=== PATIENT | female | born 1960 | race Caucasian/White ===

== ENCOUNTER 2019-11-19 08:42 | Outpatient (CLI) | payer BC, SELFPAY ==
--- NOTE | 2019-11-19 08:46 | ECG_ITS ---
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
== END 2019-11-19 08:43 | disposition home or self-care (01) ==
PROVIDERS: Visit Provider Obstetrics & Gynecology
DX: Z01.810 Encounter for preprocedural cardiovascular examination (principal); E78.2 Mixed hyperlipidemia
CPT/HCPCS: 93005

== ENCOUNTER 2019-11-26 00:51 | Day surgery (SDC) | payer BC, SELFPAY ==
[2019-11-13 14:27] VITALS: BMI 39.1
--- NOTE | 2019-11-25 22:56 | PM.IMHP ---
H&P: HPI History of Present Illness Chief complaint: Post Menopausal Bleeding Narrative: 58-year-old 1 para 1001 who had not had any vaginal bleeding for a year or so. She then had a small episode in March. Daily vaginal bleeding started in May. She says it is not heavy, but is always present. She has no cramping or pain. Ultrasound exam on 09/01/19 demonstrated an endometrial stripe measuring 6-7 mm. The right ovary was normal in appearance and the left was not visualized. 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 She has no history of abnormal pap or of STI. Meds Home Medications and Allergies Home Medications Medication Instructions Recorded Confirmed Type atorvastatin 10 mg tablet 10 mg PO QPM 08/22/19 11/13/19 History levothyroxine 137 mcg tablet 137 mcg PO DAILY #30 tablet 08/27/19 11/13/19 Rx ascorbic acid-vitamin E-biotin 1 tablet PO DAILY 11/13/19 11/13/19 History [Hair, Skin, Nails with Biotin] flaxseed oil 1,000 mg PO DAILY 11/13/19 11/13/19 History Allergies Allergy/AdvReac Type Severity Reaction Status Date / Time No Known Allergies Allergy Verified 11/13/19 14:28 Exam Const: General: comfortable and no acute distress Neck: Thyroid: thyroid normal Resp: Effort & Inspection: normal respiratory effort Auscultation: clear to auscultation bilaterally Cardio: Rate: regular rate Rhythm: regular rhythm GI: Other: Soft, nontender, nondistended. No hepatosplenomegaly. : Other: External genitalia: normal female hair distribution, without lesion. Urethral meatus: no lesion, non prolapsed. Bladder: no mass, nontender Vagina: well-estrogenized, without lesion. No cystocele or rectocele. Dark blood is noted. Cervix: no lesion or discharge. Uterus: small, anteverted, freely mobile, nontender Adnexa: no mass or tenderness. Anus/perineum: no lesions, nontender Skin: General skin exam: normal color and no rashes or lesions noted Neuro: Speech: normal speech Extrem: Other: Nontender, no edema Psych: Mental Status: mental status grossly normal Affect: normal affect Assessment and Plan Assessment and plan (1) Post-menopausal bleeding: Code(s): N95.0 - Postmenopausal bleeding Status: Acute Assessment and Plan: We have reviewed options including endometrial sampling in the office versus hysteroscopy with D&C in the operating room. After a discussion regarding risks and benefits, she prefers the latter. She understands risks of surgery to include risks of anesthesia, risks of pain, infection, bleeding, blood products, thromboembolic phenomena and damage to adjacent structures such as bowel, bladder, ureters, blood vessels and nerves. She understands all these risks and elects to proceed with surgery. (2) Abnormal pelvic ultrasound: Code(s): R93.89 - Abnormal findings on diagnostic imaging of other specified body structures Status: Acute
[2019-11-26] MEDS: LACTATED RINGERS 1,000 ML 30 ML IV CONT (10:20)
[2019-11-26 10:30] VITALS: BP 115/76; PULSE 76; RESP 18; TEMP 36.9; O2SAT 97
--- NOTE | 2019-11-26 11:49 | WPDANESEPPF ---
Anes - Initial Pre Proc Eval Procedure: Operation Date: 11/26/19 12:00 Proposed Procedures p Hysteroscopy, Dilation and Curettage - Abdon Weeks MD Date/Time: 11/26/19 11:49 Surgeon: Abdon Weeks MD Pre Op Diagnosis: Post Menopausal Bleeding Patient Data Age: 58 Gender: F Height: 5 ft 7 in Weight: 117 kg Allergies Allergy/AdvReac Type Severity Reaction Status Date / Time No Known Allergies Allergy Verified 11/26/19 10:14 Home Medications Medication Instructions Recorded Confirmed Type atorvastatin 10 mg tablet 10 mg PO QPM 08/22/19 11/26/19 History levothyroxine 137 mcg tablet 137 mcg PO DAILY #30 tablet 08/27/19 11/26/19 Rx ascorbic acid-vitamin E-biotin 1 tablet PO DAILY 11/13/19 11/26/19 History [Hair, Skin, Nails with Biotin] flaxseed oil 1,000 mg PO DAILY 11/13/19 11/26/19 History Patient hx anesthesia problems: none Family hx anesthesia problems: none PMFSH Past Medical History Medical History Endocrine disorder H/O radioactive iodine thyroid ablation (~07/08/09) Hepatitis C antibody test negative Family History Family History Grandparent Diabetes mellitus Family history of malignant neoplasm of breast Father Hypertension Cerebrovascular accident Sibling Family history of elevated blood lipids Social History Social History Smoking status: Former smoker Smoking end date: 10/08/14 Alcohol intake: current Anes - Eval Final PreProcedure Day of Procedure 11/26/19 11:49 Patient weight: morbidly obese Heart: regular rate and rhythm Lungs: clear to auscultation Airway: Mallampati scale class III Neurological: alert and oriented Last oral intake: >/= 8 hours ASA classification: III Emergent: no Anesthetic plan: proceed Anesthesia type and monitoring: general GIVS and standard monitoring Informed Consent: The patient's anesthetic plan and its attendant risks and benefits were discussed with the patient/family/POA. Questions were solicited and answers provided to the satisfaction of the patient/family/POA.
--- NOTE | 2019-11-26 12:16 | WPDHPUPDATE1 ---
History and Physical Update Update Date/Time: 11/26/19 12:16 History and Physical has been reviewed, including an updated exam of the patient. There are NO changes in the patient's condition. Risks, benefits, and alternatives have been discussed and questions answered. Patient agrees to proceed with procedure.
[2019-11-26] MEDS: KETOROLAC 30 MG/ML VIAL (*BKC) IV PUSH (12:45)
--- NOTE | 2019-11-26 12:51 | P.OP_ITS ---
Procedure Note - Detailed Date of procedure: 11/26/19 Pre-op diagnosis: Post Menopausal Bleeding Post-op diagnosis: same Procedure performed: Hysteroscopy D&C Endometrial polypectomy Description of procedure: The patient was taken to the operating room where she was prepared and draped in the usual sterile fashion in the dorsal lithotomy position. The bladder was drained with a red rubber catheter. A sterile speculum was placed into the vagina. The anterior lip of the cervix was grasped with single-toothed tenaculum. Ten mL of 1% lidocaine was administered in a paracervical block. The cervix was then gently dilated using Hegar dilators until an 8 mm dilator could be passed. Hysteroscopy was performed using sterile saline as a distention medium. Findings were as noted above. The polyp forceps was advanced and the polyp was easily removed. Sharp curettage was then performed, and endometrial curettings were collected on a Telfa pad and passed off to be sent to pathology. A second look was taken with the hysteroscope to c onfirm complete excision of the polyp. Hemostasis was excellent. Sponge, lap, needle and instrument counts were correct. The patient was awakened and taken to the recovery room in stable condition. I was present and scrubbed through the entire procedure. Anesthesia: MAC and local (paracervical block) Surgeon: Abdon Weeks MD Estimated blood loss (mL): 5 Drains: No Packing: No Pathology: yes (Endometrial curettings with polyp) Complications: None Condition: stable Disposition: PACU Findings: Endometrial polyp anteriorly. Endometrium otherwise unremarkable. Both tubal ostia seen.
[2019-11-26 12:54] VITALS: BP 114/72; PULSE 83; RESP 18; O2SAT 96
[2019-11-26 13:30] VITALS: BP 120/87; PULSE 72; RESP 14
== END 2019-11-26 13:50 | disposition home or self-care (01) ==
PROVIDERS: Visit Provider Obstetrics & Gynecology
PROC: 0U5B8ZZ Destruction of Endometrium, Via Natural or Artificial Opening Endoscopic (ICD-10-PCS; CPT 58563; principal; 2019-11-26 12:00)
DX: N95.0 Postmenopausal bleeding (principal); N84.0 Polyp of corpus uteri; E89.0 Postprocedural hypothyroidism; Z87.891 Personal history of nicotine dependence; E66.01 Morbid (severe) obesity due to excess calories; Z68.41 Body mass index [BMI] 40.0-44.9, adult
CPT/HCPCS: 58558; 88305; A9270; J1885; J2250; J2704; J3010; J7030; J7120

== ENCOUNTER 2021-01-05 07:43 | Outpatient (CLI) | payer BC, SELFPAY ==
--- NOTE | ~2021-01-05 | MM_ITS ---
EXAMINATION: MM screening [facility] BI w amina HISTORY: Screening mammogram TECHNIQUE: Craniocaudal and mediolateral oblique 3-D tomosynthesis images were obtained and synthetic 2-D images were generated. CAD analysis was submitted and interpreted. COMPARISON: 11/12/2018, 04/25/2017, 12/09/2013 BREAST PARENCHYMAL COMPOSITION: There are scattered areas of fibroglandular density. FINDINGS: A low-density mass in the anterior third of the upper outer quadrant of the right breast de oliveira s decreased in size, consistent with a benign finding. There is no evidence of suspicious mass, calci fication, or architectural distortion to suggest malignancy in either breast. There has been no suspi cious interval change. IMPRESSION: 1. No mammographic evidence of malignancy. 2. Recommend routine screening mammography in one year. BI-RADS Category 2: Benign finding(s). Reviewed, dictated and finalized at location A.
== END 2021-01-05 07:44 | disposition home or self-care (01) ==
LOC: ANHIMG 07:45
PROVIDERS: PCP Family Medicine; Visit Provider Family Medicine
DX: Z12.31 Encounter for screening mammogram for malignant neoplasm of breast (principal)
CPT/HCPCS: 77063; 77067

== ENCOUNTER → 2021-01-17 02:51 | Outpatient (CLI) | payer BC, SELFPAY ==
[2021-01-17 19:42] LABS: SARS-CoV-2 RNA PCR Negative
== END ==
PROVIDERS: PCP Family Medicine; Visit Provider Internal Medicine Gastroenterology
DX: Z01.812 Encounter for preprocedural laboratory examination (principal); Z20.822 Contact with and (suspected) exposure to COVID-19
CPT/HCPCS: C9803; U0003; U0005

== ENCOUNTER 2021-01-20 00:50 | Day surgery (SDC) | payer BC, SELFPAY ==
[2021-01-17 10:01] VITALS: BMI 39.3
[2021-01-20 10:44] VITALS: BP 119/80; PULSE 92; RESP 20; TEMP 36.4; O2SAT 96
[2021-01-20] MEDS: LACTATED RINGERS 1,000 ML 150 ML IV CONT (10:49)
--- NOTE | 2021-01-20 11:16 | WPDANESEPPF ---
Anes - Initial Pre Proc Eval Procedure: Operation Date: 01/20/21 12:30 Proposed Procedures p Colonoscopy - Saúl Babin MD Date/Time: 01/20/21 11:16 Surgeon: Saúl Babin MD Pre Op Diagnosis: rectal bleed Patient Data Age: 60 Gender: F Height: 5 ft 7 in Weight: 114 kg Last Vital Signs Temp 97.6 F 01/20/21 10:44 Pulse 92 01/20/21 10:44 Resp 20 01/20/21 10:44 BP 119/80 01/20/21 10:44 Pulse Ox 96 01/20/21 10:44 Allergies Allergy/AdvReac Type Severity Reaction Status Date / Time No Known Allergies Allergy Verified 01/20/21 10:43 Home Medications Medication Instructions Recorded Confirmed Type flaxseed oil 1,000 mg PO DAILY 11/13/19 01/20/21 History atorvastatin 10 mg tablet 10 mg PO QPM #90 tablet 11/12/20 01/20/21 Rx levothyroxine 137 mcg tablet 137 mcg PO DAILY #90 tablet 11/12/20 01/20/21 Rx multivitamin 1 tablet PO DAILY 11/12/20 01/20/21 History ferrous sulfate 324 mg (65 mg 324 mg PO BID #60 tablet 01/04/21 01/20/21 Rx iron) tablet,delayed release Patient hx anesthesia problems: none Family hx anesthesia problems: none PMFSH Past Medical History Medical History (Updated 01/20/21 @ 11:17 by Brandin North MD) Arthritis Endocrine disorder H/O radioactive iodine thyroid ablation (~07/08/09) Hepatitis C antibody test negative Mixed hyperlipidemia Family History Family History Grandparent Diabetes mellitus Family history of malignant neoplasm of breast Father Hypertension Cerebrovascular accident Sibling Family history of elevated blood lipids Social History Social History Smoking packs per day: 1 Smoking cigarettes per day: 20.0 Years smoked: 40 Smoking pack-years: 40.00 Smoking status: Former smoker Tobacco type: cigarettes Smoking end date: 10/08/14 Alcohol intake: current Alcohol use details: very rarely Living arrangements: with family Gender identity (if verbalized by the patient): Female Spiritual care concerns: No Anes - Eval Final PreProcedure Day of Procedure 01/20/21 11:16 Patient weight: morbidly obese Heart: regular rate and rhythm Lungs: clear to auscultation Airway: Mallampati scale class III Neurological: alert and oriented Last oral intake: >/= 8 hours ASA classification: III Emergent: no Anesthetic plan: proceed Anesthesia type and monitoring: general GIVS and standard monitoring Informed Consent: The patient's anesthetic plan and its attendant risks and benefits were discussed with the patient/family/POA. Questions were solicited and answers provided to the satisfaction of the patient/family/POA.
--- NOTE | 2021-01-20 12:53 | P.CONGI_ITS ---
Assessment and Plan Assessment and plan (1) Rectal Hemorrhage: Code(s): K62.5 - Hemorrhage of anus and rectum Status: Acute Assessment and Plan: patient with 1 episode of bright red blood per rectum. Plan is for colonoscopy to evaluate more thoroughly. High-fiber diet is advised. Further recommendations will be given after endoscopy. patient has never had colonoscopy screening before. GI Consult Note Consult date/time: 01/20/21 12:53 HPI: Marizol Josue is a 60 year old female Seen in evaluation for evaluation of rectal bleeding. Patient reports 1 episode of bright red blood per rectum. She denies abdominal pain. She states her bowel habits are regular. Her family history is noncontributory. There is no reported history of colon rectal disease. Patient states that she has been in general good health. Review of Systems Review of Systems: All systems reviewed & are unremarkable except as noted in HPI and below PMFSH Past Medical History Medical History (Updated 01/20/21 @ 11:17 by Brandin North MD) Arthritis Endocrine disorder H/O radioactive iodine thyroid ablation (~07/08/09) Hepatitis C antibody test negative Mixed hyperlipidemia Family History Family History Grandparent Diabetes mellitus Family history of malignant neoplasm of breast Father Hypertension Cerebrovascular accident Sibling Family history of elevated blood lipids Social History Social History Smoking packs per day: 1 Smoking cigarettes per day: 20.0 Years smoked: 40 Smoking pack-years: 40.00 Smoking status: Former smoker Tobacco type: cigarettes Smoking end date: 10/08/14 Alcohol intake: current Alcohol use details: very rarely Living arrangements: with family Gender identity (if verbalized by the patient): Female Spiritual care concerns: No Meds Home Medications and Allergies Home Medications Medication Instructions Recorded Confirmed Type flaxseed oil 1,000 mg PO DAILY 11/13/19 01/20/21 History atorvastatin 10 mg tablet 10 mg PO QPM #90 tablet 11/12/20 01/20/21 Rx levothyroxine 137 mcg tablet 137 mcg PO DAILY #90 tablet 11/12/20 01/20/21 Rx multivitamin 1 tablet PO DAILY 11/12/20 01/20/21 History ferrous sulfate 324 mg (65 mg 324 mg PO BID #60 tablet 01/04/21 01/20/21 Rx iron) tablet,delayed release Allergies Allergy/AdvReac Type Severity Reaction Status Date / Time No Known Allergies Allergy Verified 01/20/21 10:43 Vital Signs Vital Signs - 24 hr 01/20/21 10:44 Temperature 97.6 F Pulse Rate 92 Respiratory Rate 20 Blood Pressure 119/80 Pulse Oximetry 96 Exam Narrative: Exam Narrative: Physical exam reveals patient be alert. Vital signs stable. HEENT exam unremarkable. Lungs are clear to auscultation. Heart is without extra sounds. Abdominal exam bowel sounds are present soft nontender with no organomegaly. Digital external rectal exam normal
[2021-01-20 12:56] VITALS: BP 112/70; PULSE 80; RESP 14; O2SAT 100
[2021-01-20 13:06] VITALS: BP 109/70; PULSE 76; RESP 22; O2SAT 100
[2021-01-20 13:16] VITALS: BP 104/62; PULSE 75; RESP 18; O2SAT 100
== END 2021-01-20 13:16 | disposition home or self-care (01) ==
PROVIDERS: PCP Family Medicine; Visit Provider Internal Medicine Gastroenterology
PROC: 0DJD8ZZ Inspection of Lower Intestinal Tract, Via Natural or Artificial Opening Endoscopic (ICD-10-PCS; CPT 45378; principal; 2021-01-20 12:30)
DX: Z12.11 Encounter for screening for malignant neoplasm of colon (principal); K62.5 Hemorrhage of anus and rectum; K63.5 Polyp of colon; K64.8 Other hemorrhoids; K57.30 Diverticulosis of large intestine without perforation or abscess without bleeding; E78.2 Mixed hyperlipidemia; Z87.891 Personal history of nicotine dependence; E66.01 Morbid (severe) obesity due to excess calories; Z68.39 Body mass index [BMI] 39.0-39.9, adult
CPT/HCPCS: 45385; 88305; J2704; J7120

== ENCOUNTER 2021-08-09 15:57 | Outpatient (NON) | payer BC, SELFPAY | END 2021-08-09 15:58 | disposition home or self-care (01) | LOC: CHSLAB 15:59 | PROVIDERS: Visit Provider Family Medicine | DX: L91.8 Other hypertrophic disorders of the skin (principal) | CPT/HCPCS: 88305 ==

== ENCOUNTER 2021-09-27 14:31 | Outpatient (CLI) | payer BC, SELFPAY ==
[2021-09-27 14:48] LABS: Basophils Absolute Auto 0.02 K/mm3 (0.00-0.10); Basophils Percent Auto 0.3 % (0.0-1.0); Eosinophils Absolute Auto 0.31 K/mm3 (0.02-0.50); Hematocrit 40.4 % (35.0-49.0); Hemoglobin 13.2 g/dL (12.0-15.0); Immature Granulocyte Absolute 0.02 K/mm3 (0.00-0.00); Immature Granulocyte Percent A 0.3 % (0.0-0.0); Lymphocytes Absolute Auto 2.19 K/mm3 (1.10-4.50); Lymphocytes Percent Auto 27.9 % (18.0-42.0); Mean Corpuscular HGB Conc 32.7 g/dL (32.0-36.0); Mean Corpuscular Hemoglobin 29.9 pg (27.0-31.0); Mean Corpuscular Volume 91.4 fL (78.0-102.0); Mean Platelet Volume 10.6 fl (9.2-11.8); Monocytes Absolute Auto 0.66 K/mm3 (0.10-0.90); Monocytes Percent Auto 8.4 % (2.0-11.0); Neutrophils Absolute Auto 4.6 K/mm3 (1.7-7.2); Neutrophils Percent Auto 59.1 % (50.0-70.0); Platelet Count Result 229 K/mm3 (150-420); Red Blood Count 4.42 M/mm3 (4.20-5.40); Red Cell Distribution Width 12.9 % (11.6-14.4); White Blood Count 7.8 K/mm3 (4.8-10.8)
[2021-09-27 15:30] LABS: Thyroid Stimulating Hormone 0.22 uIU/mL (0.36-3.74)
== END 2021-09-27 14:32 | disposition home or self-care (01) ==
PROVIDERS: PCP Nurse Practitioner Family; Visit Provider Nurse Practitioner Family
DX: D64.9 Anemia, unspecified (principal); E03.9 Hypothyroidism, unspecified
CPT/HCPCS: 36415; 84443; 85025

== ENCOUNTER 2022-01-06 15:15 | Outpatient (CLI) | payer BC, SELFPAY ==
[2022-01-06 16:18] LABS: Thyroid Stimulating Hormone 0.54 uIU/mL (0.36-3.74)
== END 2022-01-06 15:16 | disposition home or self-care (01) ==
LOC: CHSLAB 15:21
PROVIDERS: PCP Family Medicine; Visit Provider Nurse Practitioner Family
DX: E03.9 Hypothyroidism, unspecified (principal)
CPT/HCPCS: 36415; 84443

== ENCOUNTER 2022-02-14 13:19 | Outpatient (CLI) | payer BC, SELFPAY ==
[2022-02-14 14:06] LABS: Thyroid Stimulating Hormone 2.67 uIU/mL (0.36-3.74)
== END 2022-02-14 13:20 | disposition home or self-care (01) ==
LOC: CHSLAB 13:26
PROVIDERS: PCP Family Medicine; Visit Provider Nurse Practitioner Family
DX: E03.9 Hypothyroidism, unspecified (principal)
CPT/HCPCS: 36415; 84443

== ENCOUNTER 2023-05-29 12:52 | Outpatient (CLI) | payer OTHER, SELFPAY ==
--- NOTE | ~2023-05-29 | MM_ITS ---
EXAMINATION: MM screening [facility] BI w [facility] HISTORY: Screening mammogram TECHNIQUE: Craniocaudal and mediolateral oblique 3-D tomosynthesis images were obtained and synthetic 2-D images were generated. CAD analysis was submitted and interpreted. COMPARISON: 01/05/2021, , 04/25/2017 bilateral screening mammogram examinations BREAST PARENCHYMAL COMPOSITION: There are scattered areas of fibroglandular density. FINDINGS: Right breast: Occasional small asymmetric opacities, apparently new, are noted in the medial and late ral aspect of the right breast. Diagnostic right mammogram and right breast ultrasound examination ar e recommended. Left breast There is no evidence of suspicious mass, calcification, or architectural distortion to friedman ggest malignancy in the left breast. There has been no suspicious interval change. IMPRESSION: New right breast mammographic asymmetries Diagnostic right mammogram and right breast ultrasound examination are recommended. BI-RADS Category 0: Incomplete: Needs additional imaging evaluation. Reviewed, dictated and finalized at location A. IMPRESSION: New right breast mammographic asymmetries Diagnostic right mammogram and right breast ultrasound examination are recommen ded. BI-RADS Category 0: Incomplete: Needs additional imaging evaluation.
== END 2023-05-29 12:53 | disposition home or self-care (01) ==
LOC: CHSIMG 12:54
PROVIDERS: PCP Family Medicine; Visit Provider Family Medicine
DX: Z12.31 Encounter for screening mammogram for malignant neoplasm of breast (principal); R92.8 Other abnormal and inconclusive findings on diagnostic imaging of breast; E03.9 Hypothyroidism, unspecified
CPT/HCPCS: 77063; 77067

== ENCOUNTER 2023-06-04 09:33 | Outpatient (CLI) | payer OTHER, SELFPAY ==
--- NOTE | ~2023-06-04 | MMUS_ITS ---
EXAMINATION: MM diagnostic [facility] RT w amina, US breast RT complete HISTORY: New right breast mammographic asymmetries reported on 05/29/2023 screening mammogram examinat ion TECHNIQUE: Additional 3-D tomosynthesis images of the right breast were performed and synthetic 2-D i mages were generated. CAD analysis was submitted and interpreted. High resolution complete right [facility] ultrasound examination including all 4 quadrants and subareolar area was performed. COMPARISON: 05/29/2023 bilateral screening mammogram FINDINGS: MAMMOGRAPHIC FINDINGS: There are 2 circumscribed opacities in the mid to upper outer right breast measuring approximately 6 and 10 mm dimension. ULTRASOUND: No suspicious mass or shadowing is detected. 9:00 7 cm from nipple: Parallel circumscribed oval hypoechoic 6.3 x 5.8 x 4.9 mm opacity without inte rnal vascularity or posterior shadowing, benign in appearance. 10:00 5 cm from nipple: Parallel circumscribed septated cyst measuring approximately 14 x 6.7 mm. The re is no internal vascularity or posterior shadowing. IMPRESSION: 1. Benign findings 2. Routine annual mammographic screening is recommended BI-RADS Category 2: Benign finding(s). Reviewed, dictated and finalized at location B. IMPRESSION: 1. Benign findings 2. Routine annual mammographic screening is recommended BI-RADS Category 2: Benign finding(s).
== END 2023-06-04 09:34 | disposition home or self-care (01) ==
LOC: CHSIMG 09:36
PROVIDERS: PCP Family Medicine; Visit Provider Family Medicine
DX: R92.8 Other abnormal and inconclusive findings on diagnostic imaging of breast (principal)
CPT/HCPCS: 76641; 77061; 77065; G0279

== ENCOUNTER 2024-10-29 13:01 | Outpatient (CLI) | payer OTHER, SELFPAY ==
--- NOTE | ~2024-10-29 | MM_ITS ---
EXAMINATION: MM screening [facility] BI w amina HISTORY: Screening TECHNIQUE: Craniocaudal and mediolateral oblique 3-D tomosynthesis images were obtained and synthetic 2-D images were generated. CAD analysis was submitted and interpreted. COMPARISON: Comparison to multiple prior studies sequentially, with oldest reviewed study dated 04/25. BREAST PARENCHYMAL COMPOSITION: Not dense: There are scattered areas of fibroglandular density. FINDINGS: Stable benign-appearing mass in the right breast, previously characterized as a cyst by jenny longo. There is no evidence of suspicious mass, calcification, or architectural distortion to sugge st malignancy in either breast. There has been no suspicious interval change. IMPRESSION: 1. No mammographic evidence of malignancy. 2. Recommend routine screening mammography in one year. BI-RADS Category 2: Benign finding(s). Reviewed, dictated and finalized at location A. AL ARCHITECT
--- NOTE | ~2024-10-29 | DEXA_ITS ---
Bone Density Report Name: GUSTAVO SOSA Age: 63 Sex: Female Ethnicity: White Date of : 1960 Indication: postmenopausal; screening for osteoporosis; height loss; Referring Provider: FLACA BRANCH Study: Bone densitometry was performed. Exam Date: October 29, 2024 Accession number: [id number] Bone Density: Region BMD T-score Z-score Classification AP Spine(L1-L4) 1.069 0.2 1.7 Normal Femoral Neck (Left) 0.763 -0.8 0.6 Normal Total Hip (Left) 0.963 0.2 1.2 Normal Femoral Neck (Right) 0.843 -0.1 1.3 Normal Total Hip (Right) 0.977 0.3 1.3 Normal Femoral Neck Mean 0.803 -0.4 0.9 Normal Total Hip Mean 0.970 0.2 1.3 Normal World Health Organization criteria for BMD impression classify patients as: Normal (T-score at or above -1.0), Osteopenia (T-score between -1.0 and -2.5), or Osteoporosis (T-score at or below -2.5). 10-year Fracture Risk: FRAX not reported because: All T-scores for Spine Total, Hip Total, Femoral Neck at or above -1.0 Clinical Information Provided by Patient: Has used the following medications: Vitamin D Patient maximum height was 68 Menopause Age: 58 No regular weight bearing exercise Does not regularly consume dairy products Drinks caffeinated beverages Onset of menses at age 15 Number of children 1 Impression: The patient has normal bone mass. Discussion: BONE DENSITY IS ABOVE THE MINIMUM DESIRABLE LEVEL AT ALL SKELETAL SITES TESTED. This patient?s bone mineral density is above the minimum desirable level (T-score -1.0 or better) at all sites measured. The patient should follow a healthful lifestyle (good nutrition with adequate calcium and vitamin D, and appropriate weight-bearing exercise). Follow-Up: Consider repeating this study in 5 years or sooner if there is some new clinical indication. Reported by: ERNESTINA on 10/29/2024 1:29:00 PM. Reviewed, dictated and finalized at location A.
== END 2024-10-29 13:02 | disposition home or self-care (01) ==
LOC: CHSIMG 13:06
PROVIDERS: PCP Family Medicine; Visit Provider Nurse Practitioner Family
DX: Z12.31 Encounter for screening mammogram for malignant neoplasm of breast (principal); Z78.0 Asymptomatic menopausal state
CPT/HCPCS: 77063; 77067; 77080